=== PATIENT | female | born 1995 | race Two or more races ===

== ENCOUNTER 2016-07-13 08:44 | Inpatient (IN) | payer MEDICAID, OTHER ==
[2016-07-13] VITALS (12 sets, daily range): BP systolic 111–139; BP diastolic 72–85; PULSE 56–79; RESP 16–18; TEMP 97.5–98; O2SAT 98–99
[~2016-07-13] VITALS: Ht 149.9 cm; Wt 71.2 kg
[~2016-07-13 08:44] MED LIST: DOCU1CAP39 PO; IBUP600 PO; PERC5TAB12 PO; PRENCAP6 PO
[2016-07-13] MEDS ORDERED: LACTATED RINGER'S 1000 ML INJ 1,000 ML IV ONE (09:08)
--- NOTE | 2016-07-13 09:18 | HHI.HP ---
HPI Chief Complaint Repeat CXN Date Seen: Jul 13, 2016 (Aide Grullon MD R2) Travel History International Travel<30 Days: No Contact w/Intl Traveler<30Days: No (Aide Grullon MD R2) History of Present Illness HPI Patient is a 21 year old at 39-1/7 weeks gestation who presents today for repeat . She has been having intermittent contractions and occasional vaginal discharge. No vaginal bleeding, gush or leaking of fluid. Positive movement. care with Kailee Wilks. (Aide Grullon MD R2) History Past Medical History Medical History: Denies Significant Hx (Aide Grullon MD R2) Obstetric History Obstetric History s/p CXN for failure to descend (Aide Grullon MD R2) Past Surgical History Narrative Surgical CXN (Aide Grullon MD R2) Family History Family History: Negative (Aide Grullon MD R2) Social History Alcohol Use: No Tobacco Use: No Substance Abuse: No (Aide Grullon MD R2) Allergies-Medications (Allergen,Severity, Reaction): Coded Allergies: No Known Allergies (Unverified , 07/13/16) Home Meds Active Scripts Ibuprofen (Motrin 600 Mg Tab)600 Mg Nsb281 Mg PO Q6H PRN ( CRAMPING) # 40 TAB Ref 1 Prov:Dinora Ardon MD 10/01/14 Mv & Min W/Fe Fumarat ( 1) Cap1 Cap PO DAILY #30 CAP Ref 2 Prov:Dinora Ardon MD 10/01/14 Docusate Sodium (Colace 100 Mg Cap)100 Mg Res781 Mg PO BID #60 CAP Ref 1 Prov:Dinora Ardon MD 10/01/14 Oxycodone-Acetaminophen 5-325 mg (Percocet 5-325 mg)Oxycodone 5/325 Acetaminophen Tab1-2 Tab PO Q6H PRN (PAIN SCALE 4 TO 10) #40 TAB Ref 0 Prov:Dinora Ardon MD 10/01/14 Reported Medications Vit-Iron Carbonyl ( Plus Iron 29-1 mg)1 Tab Tab1 Tab PO DAILY #30 TAB Ref 0 07/13/16 Review of Systems Except as stated in HPI: all other systems reviewed are Neg General / Constitutional: No: Fever, Chills Eyes: No: Blurred Vision HENT: No: Headaches Cardiovascular: No: Chest Pain or Discomfort Respiratory: No: Cough, Short of Breath Gastrointestinal: No: Nausea, Vomiting Genitourinary: Discharge, No: Dysuria, Pelvic Pain, Vaginal Bleeding Musculoskeletal: No: Edema Skin: No Rash Neurologic: No: Headache Psychiatric: No: Substance Abuse (Aide Grullon MD R2) Physical Exam Narrative GENERAL: Well-nourished, well-developed patient. SKIN: Warm and dry. HEAD: Normocephalic and atraumatic. EYES: No scleral icterus. No injection or drainage. ENT: No nasal drainage noted. Mucous membranes pink. Airway patent. NECK: Supple, trachea midline. No JVD. CARDIOVASCULAR: Regular rate and rhythm without murmurs, gallops, or rubs. RESPIRATORY: Breath sounds equal bilaterally. No accessory muscle use. ABDOMEN/GI: Abdomen soft, non-tender, bowel sounds present, no rebound, no guarding Gravid to 39 weeks size GENITOURINARY: External Genitalia: intact and normal in appearance Presentation: vertex Membranes: intact Uterine Contractions: none FHT's: Category: I Baseline: 120 Reactive: + Variability: moderate Decels: none EXTREMITIES: No cyanosis or edema. BACK: Nontender without obvious deformity. No CVA tenderness. NEUROLOGICAL: Awake and alert. Motor and sensory grossly within normal limits. Normal speech. (Aide Grullon MD R2) Data Data Vital Signs Reviewed: Yes Orders Admit To Inpatient (07/13/16 ) Code Status (07/13/16 09:08) Vital Signs (Adult) .ON ADMISSION (07/13/16 09:08) Activity Oob Ad Kathy (07/13/16 09:08) ^ Heart (07/13/16 09:08) Urinary Catheter Management UNRULY.Q8H (07/13/16 09:08) ^ Preps (07/13/16 09:08) Scd / Praneeth / Foot Pump UNRULY.QSHIFT (07/13/16 09:08) ^ Ultrasound For Locatio (07/13/16 09:08) Diet Npo (07/13/16 Breakfast) Lactated Ringer's 1000 Ml Inj (Lr 1000 M (07/13/16 09:08) Lactated Ringer's 1000 Ml Inj (Lr 1000 M (07/13/16 09:38) Citric Acid-Sodium Citrate Liq (Bicitra (07/13/16 10:45) Type And Screen (07/13/16 09:08) Complete Blood Count With Diff (07/13/16 09:08) Urinalysis - C+S If Indicated (07/13/16 09:08) Cefazolin Inj (Ancef Inj) (07/13/16 10:15) Inpatient Certification (07/13/16 ) Specimen To Be Collected PRN (07/13/16 09:08) (Aide Grullon MD R2) Assessment/Plan Assessment and Plan 21 year old at 39-1/7 weeks gestation. 1. IUP- Category I tracing, reassuring. Continue routine obstetric care. 2. Repeat CXN today 3. GBS positive dw Dr. Krueger (Aide Grullon MD R2) Attending Attestation The exam, history, and the medical decision-making described in the above note were completed with the assistance of the resident provider. I reviewed and agree with the findings presented. I attest that I had a cwon-[id number] encounter with the patient on the same day, and personally performed and documented my assessment and findings in the medical record. (Hernán Krueger MD) Aide Grullon MD R2 Jul 13, 2016 09:18 Hernán Krueger MD Jul 13, 2016 10:06
[2016-07-13] MEDS: LACTATED RINGER'S 1000 ML INJ 1,000 ML IV SCH ×4 (09:38→17:00)
[2016-07-13 09:40] LABS: AUTOMATED NEUTROPHIL # 5.1 TH/MM3 (1.8-7.7); BASOPHIL % 0.5 % (0.0-2.0); EOSINOPHIL # 0.1 TH/MM3 (0-0.4); EOSINOPHIL % 0.7 % (0.0-4.0); HEMATOCRIT 37.2 % (35.0-46.0); HEMO FLAGS DIFF FINAL; LYMPH % 31.8 % (9.0-44.0); LYMPHOCYTE # 2.7 TH/MM3 (1.0-4.8); MEAN CELL VOLUME 93.4 FL (80.0-100.0); MEAN CORPUSCULAR HGB CONC 33.2 % (32.0-36.0); PLATELET COUNT 196 TH/MM3 (150-450); RED BLOOD COUNT 3.99 MIL/MM3 (4.00-5.30); RED CELL DISTRIBUTION WIDTH 13.9 % (11.6-17.2); WHITE BLOOD COUNT 8.5 TH/MM3 (4.0-11.0)
[2016-07-13] MEDS ORDERED: PREN29TA PO (09:44)
[2016-07-13 09:56] LABS: BLOOD, URINE NEG (NEG); COMMENT (UR) CULTURE INDICATED; CULTURE IF INDICATED CULTURE INDICATED; GLUCOSE,URINE NEG (NEG); KETONE, URINE NEG (NEG); MUCUS URINE FEW /lpf (OCC); NITRITE,URINE NEG (NEG); PH, URINE 6.5 (5.0-8.5); SQUAMOUS EPITHELIAL CELL URINE 11 /hpf (0-5); TRANSITIONAL EPI CELLS, URINE <1 /hpf; URINE COLOR YELLOW (YELLW/STRAW)
[2016-07-13] MEDS ORDERED: OXYTOCIN 10 UNIT/ML AMP ONE (09:56)
[2016-07-13] MEDS ORDERED: DICLOFENAC SODIUM 37.5 MG/ML VIAL IV PUSH ONE (10:01)
[2016-07-13] MEDS ORDERED: EPIDURAL-NALOXONE HCL 0.4 MG/ML AMP IV PRN (10:26)
[2016-07-13] MEDS ORDERED: EPIDURAL-DIPHENHYDRAMINE HCL 50 MG/ML VIAL IV PUSH PRN (10:26)
[2016-07-13] MEDS ORDERED: EPIDURAL-DIPHENHYDRAMINE HCL 50 MG CAP PO PRN (10:26)
[2016-07-13] MEDS ORDERED: EPIDURAL-NO SYSTEMIC NARCOTICS XX PRN (10:26)
[2016-07-13] MEDS ORDERED: EPIDURAL-DO NOT ADMINISTER ANTICOAGULANTS XX PRN (10:26)
[2016-07-13] MEDS ORDERED: CITRIC ACID-SODIUM CITRATE LIQ 30 ML UDC PO SCH (10:45)
[2016-07-13] MEDS ORDERED: ACETAMINOPHEN 325 MG TAB PO PRN (11:30)
[2016-07-13] MEDS ORDERED: SIMETHICONE 80 MG CHEWABLE TAB PO PRN (11:30)
[2016-07-13] MEDS ORDERED: oxyCODONE/ACETAMINOPHEN 5 MG/325 MG TAB PO PRN (11:30)
[2016-07-13] MEDS ORDERED: ONDANSETRON HCL 4 MG/2 ML VIAL IV PUSH PRN (11:30)
[2016-07-13] MEDS ORDERED: OXYTOCIN 30 UNITS-500ML PREMIX 500 ML IV ONE (11:30)
[2016-07-13] MEDS ORDERED: SODIUM CHLORIDE 0.9% FLUSH 5 ML FLUSH IV PRN (11:30)
[2016-07-13] MEDS ORDERED: OXYTOCIN 30 UNITS-500ML PREMIX 500 ML ONE (12:08)
[2016-07-13] MEDS: DICLOFENAC SODIUM 37.5 MG/ML VIAL IV PUSH SCH (19:50)
[2016-07-13] MEDS: SODIUM CHLORIDE 0.9% FLUSH 5 ML FLUSH IV SCH (21:24)
[2016-07-13] MEDS ORDERED: OXYTOCIN 30 UNITS-500ML PREMIX 500 ML IV PRN (21:30)
[2016-07-13] MEDS: IBUPROFEN 600 MG TAB PO PRN (23:09)
[2016-07-13] MEDS: oxyCODONE/ACETAMINOPHEN 5 MG/325 MG TAB PO PRN (23:09)
[2016-07-14] MEDS: DICLOFENAC SODIUM 37.5 MG/ML VIAL IV PUSH SCH (02:50)
[2016-07-14 05:59] LABS: AUTOMATED NEUTROPHIL # 8.8 TH/MM3 (1.8-7.7); BASOPHIL % 0.4 % (0.0-2.0); EOSINOPHIL % 0.4 % (0.0-4.0); HEMATOCRIT 29.8 % (35.0-46.0); HEMO FLAGS DIFF FINAL; LYMPH % 15.9 % (9.0-44.0); LYMPHOCYTE # 1.8 TH/MM3 (1.0-4.8); MEAN CELL VOLUME 93.2 FL (80.0-100.0); MEAN CORPUSCULAR HEMOGLOBIN 31.1 PG (27.0-34.0); MEAN CORPUSCULAR HGB CONC 33.3 % (32.0-36.0); MONO % 7.5 % (0.0-8.0); NEUT % 75.8 % (16.0-70.0); PLATELET COUNT 178 TH/MM3 (150-450); RED CELL DISTRIBUTION WIDTH 13.9 % (11.6-17.2); WHITE BLOOD COUNT 11.6 TH/MM3 (4.0-11.0)
[2016-07-14] MEDS: DOCUSATE SODIUM 50 MG/SENNA 8.6 MG TAB PO PRN (06:14)
[2016-07-14] MEDS: IBUPROFEN 600 MG TAB PO PRN ×3 (06:14→21:50)
[2016-07-14] MEDS: oxyCODONE/ACETAMINOPHEN 5 MG/325 MG TAB PO PRN ×4 (06:14→21:50)
--- NOTE | 2016-07-14 07:29 | HHI.OB ---
Subjective Remarks 21 year old after repeat . She is . Lochia is minimal. She has flatus but no bowel movement. She is urinating. She plans to follow with Kailee Wilks. She is interested in IUD or Depo Provera. She is ambulating. Objective Vitals/I&O Vital Signs Date Time Temp Pulse Resp B/P Pulse Ox O2 Delivery O2 Flow Rate FiO2 07/13/16 19:40 77 16 126/85 07/13/16 19:40 98.0 07/13/16 16:07 18 07/13/16 14:55 16 07/13/16 12:40 97.5 07/13/16 12:38 56 16 124/72 99 07/13/16 12:25 67 16 117/74 99 07/13/16 12:10 123/73 07/13/16 12:10 67 18 99 07/13/16 11:55 111/72 07/13/16 11:55 99 07/13/16 11:55 74 16 07/13/16 11:40 79 16 122/74 07/13/16 11:40 98 07/13/16 11:25 99 07/13/16 11:25 97.7 16 07/13/16 11:25 73 07/13/16 11:25 139/72 07/13/16 09:15 16 07/13/16 09:15 98.0 07/13/16 09:04 67 119/75 Result Diagram: 07/14/16 0524 Objective Remarks GENERAL: Well-nourished, well-developed patient. CARDIOVASCULAR: Regular rate and rhythm without murmurs, gallops, or rubs. RESPIRATORY: Breath sounds equal bilaterally. No accessory muscle use. ABDOMEN/GI: Abdomen soft, non-tender, bowel sounds present. Incision: Clean, dry and intact. Fundus: Firm, non-tender at umbilicus. GENITOURINARY: Light to moderate bleeding. EXTREMITIES: No cyanosis or edema, non-tender, without signs of DVT. Medications and IVs Current Medications Medications (Trade) Dose Ordered Sig/Carlos Alberto Route Start Time Stop Time Status Last Admin (Lr 1000 ml Inj) 1,000 ml @ 100 mls/hr Q10H IV 07/13/16 16:24 07/14/16 12:23 07/13/16 17:00 (NS Flush) 2 ml BID IV 07/13/16 21:00 07/13/16 21:24 (NS Flush) 2 ml UNSCH PRN IV 07/13/16 11:30 (Mylicon Chew) 80 mg QID PRN PO 07/13/16 11:30 (Tylenol) 650 mg Q6H PRN PO 07/13/16 11:30 (Motrin) 600 mg Q6H PRN PO 07/13/16 11:30 07/14/16 06:14 (Percocet 5-325 Mg) 1 tab Q4H PRN PO 07/13/16 11:30 07/14/16 06:14 (Percocet 5-325 Mg) 2 tab Q4H PRN PO 07/13/16 11:30 (Georgina-Colace) 2 tab Q12H PRN PO 07/13/16 11:30 07/14/16 06:14 (M-M-R Ii Inj) 0.5 ml ONCE ONCE SQ 07/14/16 16:00 07/14/16 16:01 (Boostrix Inj) 0.5 ml ONCE ONCE IM 07/14/16 16:00 07/14/16 16:01 (Zofran Inj) 4 mg Q6H PRN IV PUSH 07/13/16 11:30 07/13/16 21:24 Miscellaneous Information NO SYSTEMIC NARCOTICS TO BE GIVEN FO... UNSCH PRN XX 07/13/16 10:26 07/14/16 10:25 (Narcan Inj) 0.4 mg UNSCH PRN IV 07/13/16 10:26 07/14/16 10:25 (Benadryl Inj) 25 mg Q6H PRN IV PUSH 07/13/16 10:26 07/14/16 10:25 (Benadryl) 50 mg Q6H PRN PO 07/13/16 10:26 07/14/16 10:25 Miscellaneous Information ALL NURSING DEPARTMENTS UNSCH PRN XX 07/13/16 10:26 07/14/16 10:25 (Flu (Quadrivalent) Vaccine Inj) 0.5 ml ONCE ONCE IM 07/14/16 10:00 07/14/16 10:01 Assessment/Plan Assessment and Plan 21 year old s/p day 1 after repeat . - Encourage exclusive - Percocet, Ibuprofen PRN for pain control - Encourage ambulation - Pelvic rest - IUD versus Depo-Provera for control - Monitor incision site - Monitor ambreen Farnsworth,Oswaldo Preciado MD R2 Jul 14, 2016 07:28
[2016-07-14 08:00] VITALS: BP 109/52; PULSE 80; RESP 16; TEMP 97.9; O2SAT 97
--- NOTE | 2016-07-14 08:47 | MP ---
cc: HERNÁN KRUEGER MD DATE OF SURGERY July 13, 2016 PREOPERATIVE DIAGNOSES 1. Intrauterine at 39 weeks and one day. 2. Previous delivery. Desires repeat. 3. Group beta Strep positive. POSTOPERATIVE DIAGNOSES 1. Intrauterine at 39 weeks and one day. 2. Previous delivery. Desires repeat. 3. Group beta Strep positive. PROCEDURE PERFORMED Repeat low transverse delivery. SURGEON Hernán Krueger MD [employer] ESTIMATOR SURGEON Dayami Grullon PGY2 ANESTHESIA Spinal. IV FLUID 1400 cc crystalloid. URINE OUTPUT 200 cc clear yellow urine. ESTIMATED BLOOD LOSS 600 cc. DRAINS Ramachandran to gravity. ESTIMATED BLOOD LOSS 500 cc. COMPLICATIONS None. INDICATIONS The patient is a 21-year-old female, 2, para 1 with intrauterine at 39 weeks and one day with history of delivery who desires elective repeat. SURGICAL FINDINGS 1. Normal pelvic anatomy. 2. Male infant in vertex presentation with nuchal cord x 1 and clear amniotic fluid. Time of delivery 10:48 a.m. Apgars 9 and 9. weight 3550 grams. 3. Intact placenta with three vessel cord. 4. Hemostasis at completion of procedure. PREOPERATIVE ANTIBIOTICS Ancef 1 gram IV. PROCEDURE IN DETAIL After the risks, benefits and alternatives of repeat delivery were reviewed with the patient and questions were answered, surgical consents were signed. The patient was transported to the operating room where spinal anesthesia was administered by the anesthesia team. The patient was then placed in the dorsal supine position. SCD hose were placed on the lower extremities. A Ramachandran catheter was inserted in the bladder under sterile conditions. The patient was then prepped and draped in the normal sterile fashion. Anesthesia was tested and found to be adequate. Time-out procedure was performed. A Pfannenstiel skin incision was made with the scalpel over the previous incision and carried down to the underlying fascia. The fascia was incised on either side of the midline and the incision was extended laterally with the Lucio scissors. The superior aspect of the fascial incision was grasped with Mehreen clamps and the rectus muscles were dissected off bluntly and sharply. This was repeated along the inferior aspect of the fascial incision. The rectus muscles were then in the midline and the underlying peritoneum was entered bluntly. The incision was stretched manually. A bladder blade was placed, bladder flap was created with the Metzenbaum scissors and blunt dissection. The bladder blade was replaced over the bladder flap. Incision was made in the lower uterine segment in a transverse fashion. Once amniotic bag was visualized, the incision was extended digitally. Membranes were ruptured revealing clear fluid. The 's head was then brought down to the incision and fundal pressure and upward traction was applied. Additional room was needed for the head to exit, therefore a small 2-cm extension was made in the uterus with the bandage scissors on the left side. The head then easily delivered with upward traction of fundal pressure. The nuchal cord was reduced. The body was then delivered with gentle traction in the usual fashion. The mouth and nose were bulb suctioned. The cord was clamped and cut and the infant was handed off to the waiting team. The placenta was delivered with fundal massage. The uterus was then exteriorized and cleared of all clots and debris. The uterine incision was repaired with #1 chromic in a running locked fashion. Hemostasis was noted. The posterior cul-de-sac was irrigated and suctioned. The uterus was then returned to the abdomen. The gutters were irrigated and suctioned. The incision was reinspected and a small area of bleeding was noted along the left edge of the incision which was repaired with one additional [id number] suture of #1 chromic. Four pieces of Seprafilm were placed over the uterine fundus and the uterine incision. The rectus muscles were then loosely reapproximated with one [id number] of 0 Vicryl over the midline. The fascia was then closed with #1 Vicryl in a running fashion. The subcutaneous tissue was irrigated and coagulated. The subcutaneous space was closed with interrupted sutures of 2-0 Vicryl. The skin was then closed with 4-0 Monocryl in a subcuticular fashion. The patient tolerated the procedure well. Sponge, lap, needle and instrument counts were reported as correct x 3. The patient was transported to the recovery room with her in stable condition. Chanelle Young/VANGIE /11:34 AM /8:27 AM DONNA
[2016-07-14] MEDS ORDERED: INFLUENZA VIRUS VACCINE (QUADRIVALENT) 0.5 ML SYR IM ONE (10:00)
[2016-07-14] MEDS ORDERED: DIPHTH/TETANUS/ACEL PERTUSSIS (BOOSTER) 0.5 ML VIAL/PFS IM ONE (16:00)
[2016-07-14] MEDS ORDERED: MEASLES, MUMPS, RUBELLA VACCINE 0.5 ML VIAL SQ ONE (16:00)
[2016-07-15] MEDS: oxyCODONE/ACETAMINOPHEN 5 MG/325 MG TAB PO PRN ×2 (03:58→10:22)
[2016-07-15] MEDS: IBUPROFEN 600 MG TAB PO PRN ×2 (03:58→10:22)
--- NOTE | 2016-07-15 07:04 | HHI.OB ---
Subjective Remarks 21 year old POD 2 after repeat . She is . Lochia is minimal. She had bowel movement. She is ambulating. She is urinating. She plans to follow with Kailee Wilks. She is interested in IUD or Depo Provera. (Oswaldo Farnsworth MD R2) Objective Vitals/I&O Vital Signs Date Time Temp Pulse Resp B/P Pulse Ox O2 Delivery O2 Flow Rate FiO2 07/14/16 08:00 97.9 80 16 109/52 97 (Oswaldo Farnsworth MD R2) Result Diagram: 07/14/16 0524 Objective Remarks GENERAL: Well-nourished, well-developed patient. CARDIOVASCULAR: Regular rate and rhythm without murmurs, gallops, or rubs. RESPIRATORY: Breath sounds equal bilaterally. No accessory muscle use. ABDOMEN/GI: Abdomen soft, non-tender, bowel sounds present. Incision: Clean, dry and intact. Fundus: Firm, non-tender at umbilicus. GENITOURINARY: Light to moderate bleeding. EXTREMITIES: No cyanosis or edema, non-tender, without signs of DVT. Medications and IVs Current Medications Medications (Trade) Dose Ordered Sig/Carlos Alberto Route Start Time Stop Time Status Last Admin (NS Flush) 2 ml BID IV 07/13/16 21:00 07/13/16 21:24 (NS Flush) 2 ml UNSCH PRN IV 07/13/16 11:30 (Mylicon Chew) 80 mg QID PRN PO 07/13/16 11:30 07/14/16 16:03 (Tylenol) 650 mg Q6H PRN PO 07/13/16 11:30 (Motrin) 600 mg Q6H PRN PO 07/13/16 11:30 07/15/16 03:58 (Percocet 5-325 Mg) 1 tab Q4H PRN PO 07/13/16 11:30 07/15/16 03:58 (Percocet 5-325 Mg) 2 tab Q4H PRN PO 07/13/16 11:30 (Georgina-Colace) 2 tab Q12H PRN PO 07/13/16 11:30 07/14/16 06:14 (Zofran Inj) 4 mg Q6H PRN IV PUSH 07/13/16 11:30 3/7/17 21:24 (Oswaldo Farnsworth MD R2) Assessment/Plan Assessment and Plan 21 year old s/p day 2 after repeat . - Encourage exclusive - Percocet, Ibuprofen PRN for pain control - Encourage ambulation - Pelvic rest - IUD versus Depo-Provera for control - Monitor incision site - Monitor lochia - Possible discharge today if doing well. dw Dr. Sanchez (Oswaldo Farnsworth MD R2) Attestation Agree with above management plans (Jazmine Sanchez MD) Oswaldo Farnsworth MD R2 Jul 15, 2016 07:04 Jazmine Sanchez MD Jul 15, 2016 09:30
[2016-07-15] MEDS ORDERED: SIME80CH PO (07:22)
[2016-07-15] MEDS ORDERED: IBUP-232 PO (07:22)
[2016-07-15] MEDS ORDERED: SENN1TAB PO (07:22)
[2016-07-15] MEDS ORDERED: OXYC1TAB63 PO (07:22)
[2016-07-15 07:35] VITALS: BP 113/77; PULSE 82; RESP 16; TEMP 98.2
[2016-07-15] MEDS: SODIUM CHLORIDE 0.9% FLUSH 5 ML FLUSH IV SCH (09:00)
[2016-07-15] MEDS: DOCUSATE SODIUM 50 MG/SENNA 8.6 MG TAB PO PRN (10:22)
== END 2016-07-15 15:50 | disposition home or self-care (01) | DRG 766 ==
LOC: H2EB 08:44 → H1EA 12:58
PROVIDERS: ADMIT Obstetrics & Gynecology; ATTEND Obstetrics & Gynecology
PROC: 10D00Z1 Extraction of Products of Conception, Low, Open Approach (ICD-10-PCS; principal; 2016-07-13)
DX: O34.219 Maternal care for unspecified type scar from previous cesarean delivery (principal); O99.824 Streptococcus B carrier state complicating childbirth; Z37.0 Single live birth; Z3A.39 39 weeks gestation of pregnancy
CPT/HCPCS: 59025; 81001; 85025; 86850; 86900; 86901; 87086; C1765; J0690; J1130; J2405; J2590; J7120